=== PATIENT | female | born 1935 | race Caucasian/White ===

== ENCOUNTER → 2022-02-16 | Outpatient (CLI) | payer MEDICARE, OTHER | LOC: LAB SHORT 16:00 → LAB 16:00 | DX: N34.2 Other urethritis (principal) | CPT/HCPCS: 87086 ==

== ENCOUNTER → 2023-02-25 | Outpatient (CLI) | payer MEDICARE, OTHER | LOC: LAB 11:05 → LAB SHORT 11:05 | DX: R19.7 Diarrhea, unspecified (principal) | CPT/HCPCS: 87177; 87209 ==

== ENCOUNTER 2023-08-17 22:34 | Emergency (ER) | payer MEDICARE, OTHER ==
[~2023-08-17] VITALS: Ht 162.6 cm; Wt 79.4 kg
[2023-08-17] MEDS ORDERED: RABEPRAZOLE SOD20 MG PO (22:47)
[2023-08-17] MEDS ORDERED: ROSUVASTATIN CA20 MG (22:47)
[2023-08-17] MEDS ORDERED: NIVA THYROID60 MG PO (22:47)
[2023-08-17] MEDS ORDERED: METOPROLOL SUCC25 MG (22:47)
[2023-08-17] MEDS ORDERED: Lisinopril2.5 MG (22:48)
[2023-08-17] MEDS ORDERED: Prednisone2.5 MG (22:48)
[2023-08-17] MEDS ORDERED: GABA100 (22:48)
[2023-08-17 23:33] LABS: Albumin, Blood 4.3 g/dL (3.4-5.0); Albumin/Globulin Ratio 1.3 (0.8-1.8); Bilirubin, Total 0.7 mg/dL (0.1-1.0); Bun/Creatinine Ratio 25.7 (12.0-20.0); Calcium, Blood 9.4 mg/dL (8.5-10.1); Creatinine, Blood 0.78 mg/dL (0.40-1.00); Globulin, Blood 3.4 g/dL (2.2-4.0); Potassium, Blood 4.3 mmol/L (3.5-5.5); Total Protein, Blood 7.7 g/dL (6.4-8.2)
[2023-08-18] MEDS ORDERED: ONDA4ODT MM (00:11)
[2023-08-18 00:39] VITALS: BP 113/57
== END 2023-08-18 00:32 | disposition home or self-care (01) ==
LOC: ER 22:34
PROVIDERS: Student in an Organized Health Care Education/Training Program
DX: R11.2 Nausea with vomiting, unspecified (principal); R19.7 Diarrhea, unspecified; R10.31 Right lower quadrant pain; R10.32 Left lower quadrant pain; E86.0 Dehydration; R55 Syncope and collapse; Z79.899 Other long term (current) drug therapy; Z79.52 Long term (current) use of systemic steroids; I10 Essential (primary) hypertension; K21.9 Gastro-esophageal reflux disease without esophagitis
CPT/HCPCS: 80053; 83735; 93005; 93010; 96361; 96374; 96375; 99284-25; A9270; J1885; J2405; J7030